=== PATIENT | female | born 1965 | race Hispanic/Latino ===

== ENCOUNTER 2017-12-30 08:44 | Emergency (ER) | payer SELFPAY ==
[~2017-12-30] VITALS: Ht 175.3 cm; Wt 81.2 kg
[2017-12-30] MEDS ORDERED: CYCLOBENZAPRINE5 MG (09:12)
[2017-12-30] MEDS ORDERED: BUPROPION HCL75 MG PO (09:13)
--- NOTE | 2017-12-30 09:45 | Diagnostic Imaging Report ---
FOOT 3 VIEW LT - HOPD, ANKLE 3VIEW LT - HOPD HISTORY: Left ankle injury 3 weeks ago. Pain and swelling. COMPARISON: None available. FINDINGS: AP, lateral, and oblique views of the left foot and left ankle. Bones: No acute displaced fracture. Moderate calcaneal spur. Ankle mortise clear spaces are intact. Osseous alignment is within normal limits. Joints: The joint spaces are well-maintained. Soft tissues: Mild soft tissue swelling of the ankle. IMPRESSION: No acute radiographic bony abnormality. Signed by: DR. Parag Kellogg MD on 12/30/2017 9:42 AM
[2017-12-30 10:40] VITALS: BP 138/88
== END 2017-12-30 11:13 | disposition home or self-care (01) ==
LOC: FSED 08:44
DX: S99.922A Unspecified injury of left foot, initial encounter (principal); M25.572 Pain in left ankle and joints of left foot; S96.912A Strain of unspecified muscle and tendon at ankle and foot level, left foot, initial encounter; X50.1XXA Overexertion from prolonged static or awkward postures, initial encounter; Y99.0 Civilian activity done for income or pay
CPT/HCPCS: 99283